=== PATIENT | female | born 1950 | race Caucasian/White ===

== ENCOUNTER 2019-07-18 03:52 | Emergency (ER) | payer MEDICARE, BC ==
[~2019-07-18] VITALS: Ht 154.9 cm; Wt 67.3 kg
[~2019-07-18 03:52] MED LIST: LEVO500 PO; METR500 PO; TAMO10 PO
[2019-07-18 04:35] LABS: BASOPHILS % (AUTO) 0.5 % (0.0-2.0); EOSINOPHILS % (AUTO) 0.8 % (1.0-6.0); HEMATOCRIT 42.7 % (36-46); HEMOGLOBIN 14.5 g/dL (12.0-16.0); LYMPHOCYTES # (AUTO) 2.4 K/uL (1.0-4.8); LYMPHOCYTES % (AUTO) 18.2 % (22.0-44.0); MEAN CORPUSCULAR HEMOGLOBIN 30.2 pg (26.0-34.0); MEAN CORPUSCULAR HGB CONC 33.9 G/dL (31.0-37.0); MEAN CORPUSCULAR VOLUME 89 fL (80-100); MONOCYTES # (AUTO) 1.1 K/uL (0.1-1.0); MONOCYTES % (AUTO) 8.3 % (2.0-9.0); NEUTROPHILS # (AUTO) 9.6 K/uL (1.8-7.7); NEUTROPHILS % (AUTO) 72.2 % (40.0-70.0); PLATELET COUNT (AUTO) 307 K/uL (150-450); RED BLOOD CELL COUNT(AUTO) 4.79 MIL/uL (4.00-5.20); RED CELL DISTRIBUTION WIDTH 13.2 % (11.5-14.5)
[2019-07-18 04:38] LABS: APPEARANCE,URINE CLEAR (CLEAR); BILIRUBIN,URINE NEGATIVE (NEGATIVE); GLUCOSE, URINE (UA) NEGATIVE (NEGATIVE); KETONES,URINE NEGATIVE (NEGATIVE); LEUKOCYTE ESTERASE ,URINE NEGATIVE (NEGATIVE); NITRATE,URINE NEGATIVE (NEGATIVE); OCCULT BLOOD,URINE SMALL (NEGATIVE); PH,URINE 6.5 (5.0-8.0); PROTEIN,URINE NEGATIVE (NEGATIVE); UROBILINOGEN,URINE 0.2 mg/dL (<=1.0)
[2019-07-18 04:38] LABS: CALCIUM, TOTAL 8.6 mg/dL (8.8-10.5); CREATININE 1.07 mg/dL (0.60-1.30); POTASSIUM 4.1 mmol/L (3.5-5.1)
[2019-07-18 04:45] LABS: ALBUMIN 3.2 g/dL (3.4-5.0); BILIRUBIN,TOTAL 0.2 mg/dL (0.1-1.0); TOTAL PROTEIN, SERUM 6.7 g/dL (6.4-8.2)
[2019-07-18 04:45] LABS: WBC,URINE 0-2 /HPF (0-5)
[2019-07-18 04:46] LABS: BACTERIA,URINE None Seen /HPF (None Seen); SQUAMOUS EPITHELIAL CELL,UR Rare /LPF (None Seen)
[2019-07-18] MEDS ORDERED: MORPHINE SULFATE 4 MG/ML SYRINGE IVP ONE (08:00)
[2019-07-18] MEDS ORDERED: SODIUM CHLORIDE 0.9% 100 ML ONE (08:04)
[2019-07-18] MEDS ORDERED: IOVERSOL 320 MG/ML 100 ML VIAL ONE (08:04)
[2019-07-18 11:21] VITALS: BP 106/56
== END 2019-07-18 11:29 | disposition home or self-care (01) ==
LOC: EMS 03:54
DX: K57.32 Diverticulitis of large intestine without perforation or abscess without bleeding (principal); F17.210 Nicotine dependence, cigarettes, uncomplicated; E78.00 Pure hypercholesterolemia, unspecified; Z90.710 Acquired absence of both cervix and uterus; Z79.899 Other long term (current) drug therapy
CPT/HCPCS: 36415; 74177; 80053; 81001; 83690; 85025; 96374; 99284; J2270; J7050; Q9967

== ENCOUNTER 2020-09-28 15:42 | Emergency (ER) | payer MEDICARE, BC ==
[~2020-09-28] VITALS: Ht 147.3 cm; Wt 68.2 kg
[~2020-09-28 15:42] MED LIST changes: +LEVO-72 PO; -LEVO500 PO
[2020-09-28 18:53] VITALS: BP 126/73
== END 2020-09-28 19:05 | disposition home or self-care (01) ==
LOC: EMS 15:42
DX: S09.90XA Unspecified injury of head, initial encounter (principal); E78.00 Pure hypercholesterolemia, unspecified; F17.210 Nicotine dependence, cigarettes, uncomplicated; Z90.710 Acquired absence of both cervix and uterus; W01.0XXA Fall on same level from slipping, tripping and stumbling without subsequent striking against object, initial encounter; Y93.89 Activity, other specified; Y92.89 Other specified places as the place of occurrence of the external cause; Y99.8 Other external cause status
CPT/HCPCS: 70450

== ENCOUNTER 2021-06-21 15:44 | Emergency (ER) | payer MEDICARE, BC ==
[~2021-06-21] VITALS: Ht 152.4 cm; Wt 68.2 kg
[2021-06-21 17:00] VITALS: BP 92/57
[2021-06-21] MEDS ORDERED: ACETAMINOPHEN 500 MG TABLET PO ONE (17:15)
[2021-06-21] MEDS ORDERED: SULFAMETHOX/TRIMETH DS 800-160 MG/TABLET PO ONE (17:15)
[2021-06-21] MEDS ORDERED: POVIDONE-IODINE 10% 15 ML SOLUTION UD TP ONE (17:15)
[2021-06-21] MEDS ORDERED: CEPHALEXIN MONOHYDRATE 500 MG CAPSULE PO ONE (17:15)
== END 2021-06-21 18:06 | disposition home or self-care (01) ==
LOC: EMS 15:53
DX: L02.412 Cutaneous abscess of left axilla (principal); F17.210 Nicotine dependence, cigarettes, uncomplicated; E78.00 Pure hypercholesterolemia, unspecified; Z85.3 Personal history of malignant neoplasm of breast
CPT/HCPCS: 99284; 99406; Z7502; Z7610

== ENCOUNTER → 2022-01-05 | Outpatient (CLI) | payer MEDICARE, BC | END | disposition home or self-care (01) | LOC: RADMN 12:15 | PROVIDERS: ATTEND Internal Medicine | DX: R55 Syncope and collapse (principal); I67.82 Cerebral ischemia; R90.82 White matter disease, unspecified; G31.9 Degenerative disease of nervous system, unspecified; M19.011 Primary osteoarthritis, right shoulder; M25.411 Effusion, right shoulder; M75.51 Bursitis of right shoulder; M24.011 Loose body in right shoulder; M75.101 Unspecified rotator cuff tear or rupture of right shoulder, not specified as traumatic; M75.21 Bicipital tendinitis, right shoulder; M19.012 Primary osteoarthritis, left shoulder; M75.52 Bursitis of left shoulder; M75.102 Unspecified rotator cuff tear or rupture of left shoulder, not specified as traumatic; M75.22 Bicipital tendinitis, left shoulder; M24.012 Loose body in left shoulder | CPT/HCPCS: 70450; 73221 ==

== ENCOUNTER 2022-05-18 11:45 | Emergency (ER) | payer MEDICARE, BC ==
[~2022-05-18] VITALS: Ht 154.9 cm; Wt 72.7 kg
[2022-05-18 13:05] LABS: BASOPHILS % (AUTO) 0.5 % (0.0-2.0); HEMATOCRIT 45.6 % (36-46); HEMOGLOBIN 15.4 g/dL (12.0-16.0); LYMPHOCYTES # (AUTO) 1.7 K/uL (1.0-4.8); LYMPHOCYTES % (AUTO) 17.1 % (22.0-44.0); MEAN CORPUSCULAR HEMOGLOBIN 29.9 pg (26.0-34.0); MEAN CORPUSCULAR HGB CONC 33.8 G/dL (31.0-37.0); MEAN CORPUSCULAR VOLUME 89 fL (80-100); MONOCYTES # (AUTO) 0.8 K/uL (0.1-1.0); NEUTROPHILS # (AUTO) 7.2 K/uL (1.8-7.7); NEUTROPHILS % (AUTO) 73.4 % (40.0-70.0); PLATELET COUNT (AUTO) 339 K/uL (150-450); RED BLOOD CELL COUNT(AUTO) 5.14 MIL/uL (4.00-5.20)
[2022-05-18 13:09] LABS: APPEARANCE,URINE CLEAR (CLEAR); BILIRUBIN,URINE NEGATIVE (NEGATIVE); GLUCOSE, URINE (UA) NEGATIVE (NEGATIVE); KETONES,URINE NEGATIVE (NEGATIVE); LEUKOCYTE ESTERASE ,URINE NEGATIVE (NEGATIVE); NITRATE,URINE NEGATIVE (NEGATIVE); OCCULT BLOOD,URINE TRACE (NEGATIVE); PH,URINE 5.5 (5.0-8.0); PROTEIN,URINE NEGATIVE (NEGATIVE); SPECIFIC GRAVITIY, URINE 1.022 (1.003-1.030); UROBILINOGEN,URINE <=1.0 mg/dL (<=1.0)
[2022-05-18 13:16] LABS: CALCIUM, TOTAL 9.3 mg/dL (8.8-10.5); CREATININE 1.01 mg/dL (0.60-1.30); POTASSIUM 4.4 mmol/L (3.5-5.1)
[2022-05-18 13:22] LABS: ALBUMIN 3.4 g/dL (3.4-5.0); BILIRUBIN,TOTAL 0.2 mg/dL (0.1-1.0); TOTAL PROTEIN, SERUM 7.2 g/dL (6.4-8.2)
[2022-05-18 13:32] LABS: RBC,URINE 0-2 /HPF (0-2)
[2022-05-18] MEDS ORDERED: SODIUM CHLORIDE 0.9% 100 ML ONE (13:32)
[2022-05-18] MEDS ORDERED: IOHEXOL 350 MG/ML 100 ML VIAL ONE (13:32)
[2022-05-18 13:33] LABS: BACTERIA,URINE None Seen /HPF (None Seen); SQUAMOUS EPITHELIAL CELL,UR Many /LPF (None Seen)
[2022-05-18 13:58] LABS: LACTIC ACID 1.2 mmol/L (0.4-2.0)
[2022-05-18 15:54] VITALS: BP 121/78
[2022-05-24] MEDS ORDERED: HYDR-4723 PO (12:13)
[2022-05-24] MEDS ORDERED: MEDR4 PO ×3 (12:30→12:33)
== END 2022-05-18 15:57 | disposition home or self-care (01) ==
LOC: EMS 11:45
DX: R10.30 Lower abdominal pain, unspecified (principal); E78.00 Pure hypercholesterolemia, unspecified; F17.210 Nicotine dependence, cigarettes, uncomplicated
CPT/HCPCS: 99285; 74177; 80053; 81001; 83605; 84484; 85025; 85610; 85730; 86850; 86900; 86901; 36415; 93005; Q9967; J7050

== ENCOUNTER 2022-11-14 12:36 | Emergency (ER) | payer MEDICARE, BC ==
[~2022-11-14] VITALS: Ht 154.9 cm; Wt 72.7 kg
[~2022-11-14 12:36] MED LIST changes: +HYDR-4723 PO; -LEVO-72 PO; +MEDR4 PO; -METR500 PO; -TAMO10 PO
[2022-11-14 13:46] LABS: COVID AG,FIA SOURCE NASAL SWAB
[2022-11-14 14:05] LABS: INFLUENZA TYPE A NEGATIVE FOR TYPE A (NEGATIVE); INFLUENZA TYPE B NEGATIVE FOR TYPE B (NEGATIVE)
[2022-11-14 16:07] VITALS: BP 128/96
[2022-11-14 18:19] LABS: BASOPHILS % (AUTO) 0.5 % (0.0-2.0); HEMATOCRIT 44.6 % (36-46); HEMOGLOBIN 14.8 g/dL (12.0-16.0); LYMPHOCYTES # (AUTO) 1.4 K/uL (1.0-4.8); LYMPHOCYTES % (AUTO) 11.5 % (22.0-44.0); MEAN CORPUSCULAR HEMOGLOBIN 29.8 pg (26.0-34.0); MEAN CORPUSCULAR HGB CONC 33.2 G/dL (31.0-37.0); MEAN CORPUSCULAR VOLUME 90 fL (80-100); MONOCYTES # (AUTO) 1.2 K/uL (0.1-1.0); MONOCYTES % (AUTO) 9.9 % (2.0-9.0); NEUTROPHILS # (AUTO) 9.5 K/uL (1.8-7.7); NEUTROPHILS % (AUTO) 77.1 % (40.0-70.0); PLATELET COUNT (AUTO) 313 K/uL (150-450); RED BLOOD CELL COUNT(AUTO) 4.98 MIL/uL (4.00-5.20); RED CELL DISTRIBUTION WIDTH 14.3 % (11.5-14.5)
[2022-11-14 18:31] LABS: CREATININE 1.09 mg/dL (0.60-1.30); POTASSIUM 3.9 mmol/L (3.5-5.1)
[2022-11-14 18:37] LABS: ALBUMIN 3.4 g/dL (3.4-5.0); BILIRUBIN,TOTAL 0.3 mg/dL (0.1-1.0); TOTAL PROTEIN, SERUM 7.4 g/dL (6.4-8.2)
== END 2022-11-14 19:30 | disposition left against medical advice (07) ==
LOC: EMS 12:38
DX: J02.9 Acute pharyngitis, unspecified (principal); E78.00 Pure hypercholesterolemia, unspecified; F17.210 Nicotine dependence, cigarettes, uncomplicated; Z85.3 Personal history of malignant neoplasm of breast; Z90.710 Acquired absence of both cervix and uterus; Z20.822 Contact with and (suspected) exposure to COVID-19
CPT/HCPCS: 71045; 80053; 83880; 84484; 85025; 87804; 99284; 36415-L1; 36415-TC

== ENCOUNTER 2023-05-20 05:43 | Emergency (ER) | payer MEDICARE, BC ==
[~2023-05-20] VITALS: Ht 152.4 cm; Wt 68.2 kg
[2023-05-20 05:49] VITALS: BP 139/82; PULSE 68; RESP 18; TEMP 97.7
[2023-05-20] MEDS ORDERED: KETOROLAC TROMETHAMINE 60 MG/2 ML VIAL IM ONE (06:45)
[2023-05-20] MEDS ORDERED: ACETAMINOPHEN/CODEINE 300-30 MG TABLET PO ONE (06:45)
[2023-05-20 07:04] LABS: APPEARANCE,URINE HAZY (CLEAR); BILIRUBIN,URINE NEGATIVE (NEGATIVE); GLUCOSE, URINE (UA) NEGATIVE (NEGATIVE); KETONES,URINE NEGATIVE (NEGATIVE); LEUKOCYTE ESTERASE ,URINE LARGE (NEGATIVE); NITRATE,URINE NEGATIVE (NEGATIVE); OCCULT BLOOD,URINE MODERATE (NEGATIVE); PROTEIN,URINE 30-70 mg/dL (NEGATIVE); SPECIFIC GRAVITIY, URINE 1.014 (1.003-1.030); UROBILINOGEN,URINE <=1.0 mg/dL (<=1.0)
[2023-05-20 07:08] LABS: BASOPHILS % (AUTO) 0.7 % (0.0-2.0); EOSINOPHILS % (AUTO) 1.3 % (1.0-6.0); HEMATOCRIT 41.8 % (36-46); HEMOGLOBIN 14.1 g/dL (12.0-16.0); LYMPHOCYTES # (AUTO) 1.7 K/uL (1.0-4.8); LYMPHOCYTES % (AUTO) 15.2 % (22.0-44.0); MEAN CORPUSCULAR HGB CONC 33.7 G/dL (31.0-37.0); MEAN CORPUSCULAR VOLUME 89 fL (80-100); MONOCYTES # (AUTO) 1.2 K/uL (0.1-1.0); MONOCYTES % (AUTO) 10.2 % (2.0-9.0); NEUTROPHILS # (AUTO) 8.3 K/uL (1.8-7.7); NEUTROPHILS % (AUTO) 72.6 % (40.0-70.0); PLATELET COUNT (AUTO) 332 K/uL (150-450); RED BLOOD CELL COUNT(AUTO) 4.69 MIL/uL (4.00-5.20); RED CELL DISTRIBUTION WIDTH 14.8 % (11.5-14.5)
[2023-05-20 07:12] LABS: ANION GAP 6 mmol/L (8-16); CALCIUM, TOTAL 9.1 mg/dL (8.8-10.5); CARBON DIOXIDE 30 mmol/L (22-29); CHLORIDE 106 mmol/L (98-107); GLOMERULAR FILTR. RATE CALC > 60 mL/min (>60); GLUCOSE,RANDOM 90 mg/dL (70-110); POTASSIUM 3.9 mmol/L (3.5-5.1); SODIUM SERUM 141 mmol/L (136-145)
[2023-05-20 07:13] LABS: BACTERIA,URINE Few /HPF (None Seen); SQUAMOUS EPITHELIAL CELL,UR None Seen /LPF (None Seen)
[2023-05-20 07:18] LABS: ALANINE AMINOTRANSFERASE 16 U/L (12-78); ALKALINE PHOSPHATASE 185 U/L (46-116); ASPARTATE AMINOTRANSFERASE 13 U/L (15-37); BILIRUBIN,TOTAL 0.2 mg/dL (0.1-1.0); LIPASE 74 U/L (16-77); TOTAL PROTEIN, SERUM 6.3 g/dL (6.4-8.2)
[2023-05-20] MEDS ORDERED: ACET-2080 PO (07:38)
[2023-05-20] MEDS ORDERED: CEPH-558 PO (07:38)
[2023-05-20] MEDS ORDERED: ONDA-104 PO (07:38)
[2023-05-20] MEDS ORDERED: PHEN-674 PO (07:38)
== END 2023-05-20 08:04 | disposition home or self-care (01) ==
LOC: EMS 05:43
DX: N39.0 Urinary tract infection, site not specified (principal); E78.00 Pure hypercholesterolemia, unspecified; F17.210 Nicotine dependence, cigarettes, uncomplicated; Z87.440 Personal history of urinary (tract) infections; Z90.710 Acquired absence of both cervix and uterus
CPT/HCPCS: 99283; 80053; 81001; 83690; 84484; 85025; 36415; 87086; 87186; 96372; J1885

== ENCOUNTER 2025-04-12 08:02 | Inpatient (IN) | payer MEDICARE, BC ==
[~2025-04-12] VITALS: Ht 152.4 cm; Wt 68.1 kg
[~2025-04-12 08:02] MED LIST changes: +ACET-2080 PO; +CEPH-558 PO; -HYDR-4723 PO; -MEDR4 PO; +ONDA-104 PO; +PHEN-674 PO
[2025-04-12 08:35] LABS: BASOPHILS % (AUTO) 0.5 % (0.0-2.0); EOSINOPHILS % (AUTO) 0.5 % (1.0-6.0); HEMATOCRIT 45.2 % (36-46); HEMOGLOBIN 15.1 g/dL (12.0-16.0); LYMPHOCYTES # (AUTO) 2.7 K/uL (1.0-4.8); LYMPHOCYTES % (AUTO) 20.6 % (22.0-44.0); MEAN CORPUSCULAR HEMOGLOBIN 30.1 pg (26.0-34.0); MEAN CORPUSCULAR HGB CONC 33.5 G/dL (31.0-37.0); MEAN CORPUSCULAR VOLUME 90 fL (80-100); MONOCYTES # (AUTO) 1.1 K/uL (0.1-1.0); MONOCYTES % (AUTO) 8.7 % (2.0-9.0); NEUTROPHILS # (AUTO) 9.1 K/uL (1.8-7.7); NEUTROPHILS % (AUTO) 69.7 % (40.0-70.0); PLATELET COUNT (AUTO) 357 K/uL (150-450); RED BLOOD CELL COUNT(AUTO) 5.04 MIL/uL (4.00-5.20); RED CELL DISTRIBUTION WIDTH 13.9 % (11.5-14.5); WHITE BLOOD COUNT (AUTO) 13.1 K/uL (4.5-11.0)
[2025-04-12 08:45] LABS: CALCIUM, TOTAL 9.1 mg/dL (8.8-10.5); CREATININE 1.16 mg/dL (0.60-1.30); POTASSIUM 4.1 mmol/L (3.5-5.1)
[2025-04-12 08:48] LABS: ALBUMIN 3.1 g/dL (3.4-5.0); BILIRUBIN,TOTAL 0.5 mg/dL (0.1-1.0); CHOL/HDL RATIO 5.8 (3.9-5.7); TOTAL PROTEIN, SERUM 6.5 g/dL (6.4-8.2)
[2025-04-12 08:50] LABS: TROPONIN I-HIGH SENSITIVITY 7 ng/L (<51)
[2025-04-12 09:03] LABS: LACTIC ACID 0.9 mmol/L (0.4-2.0)
[2025-04-12] MEDS: CefTRIAXone 1 GM/DEXTROSE 50 ML IV ONE (10:11)
[2025-04-12] MEDS: SODIUM CHLORIDE 0.9% 1,000 ML IV ONE (10:12)
[2025-04-12] MEDS ORDERED: IOHEXOL 350 MG/ML 100 ML VIAL ONE (10:34)
[2025-04-12] MEDS ORDERED: SODIUM CHLORIDE 0.9% 100 ML ONE (10:35)
[2025-04-12] MEDS ORDERED: ACETAMINOPHEN 325 MG TABLET PO PRN (10:45)
[2025-04-12] MEDS ORDERED: ONDANSETRON HCL 4 MG/2 ML VIAL IVP PRN (10:45)
[2025-04-12] MEDS: ASPIRIN 325 MG TABLET PO ONE (11:32)
[2025-04-12] MEDS: ATORVASTATIN CALCIUM 40 MG TABLET PO ONE (11:32)
[2025-04-12] MEDS: ASPIRIN 81 MG CHEWABLE TABLET PO ONE (11:33)
[2025-04-12] MEDS: ATORVASTATIN CALCIUM 10 MG TABLET PO ONE (11:33)
[2025-04-12] MEDS: CLOPIDOGREL BISULFATE 300 MG TABLET PO ONE (11:33)
[2025-04-12] MEDS: EZETIMIBE 10 MG TABLET PO SCH (12:34)
[2025-04-12 15:50] LABS: TROPONIN I-HIGH SENSITIVITY 6 ng/L (<51)
[2025-04-12] MEDS: HEPARIN SODIUM,PORCINE 5,000 UNITS/ML VIAL SQ SCH (16:57)
[2025-04-12 18:40] VITALS: BP 131/92; PULSE 68; RESP 20; TEMP 98.1; O2SAT 95
[2025-04-12] MEDS: RINGERS SOLUTION,LACTATED 1,000 ML IV SCH (19:22)
[2025-04-12 19:43] VITALS: BP 139/77; PULSE 63; RESP 19; TEMP 98.6; O2SAT 100
[2025-04-12] MEDS: OXYGEN THERAPY IH SCH (20:00)
[2025-04-12 20:38] LABS: TROPONIN I-HIGH SENSITIVITY 6 ng/L (<51)
[2025-04-12] MEDS ORDERED: SODIUM CHLORIDE 0.9% 250 ML IV ONE (21:23)
[2025-04-12] MEDS: PIPERACILLIN SODIUM/TAZOBACTAM 2.25 GM in DEXTROSE 5%-WATER 50 ML IV SCH (21:37)
[2025-04-12] MEDS: ATORVASTATIN CALCIUM 40 MG TABLET PO SCH (21:41)
[2025-04-12 23:48] VITALS: BP 121/61; PULSE 82; RESP 18; TEMP 97.9; O2SAT 98
[2025-04-13 03:58] VITALS: BP 136/75; PULSE 85; RESP 18; TEMP 98.2; O2SAT 96
[2025-04-13 06:49] LABS: BASOPHILS % (AUTO) 0.4 % (0.0-2.0); EOSINOPHILS % (AUTO) 1.3 % (1.0-6.0); HEMATOCRIT 41.5 % (36-46); HEMOGLOBIN 13.8 g/dL (12.0-16.0); LYMPHOCYTES # (AUTO) 2.5 K/uL (1.0-4.8); LYMPHOCYTES % (AUTO) 23.9 % (22.0-44.0); MEAN CORPUSCULAR HGB CONC 33.3 G/dL (31.0-37.0); MEAN CORPUSCULAR VOLUME 90 fL (80-100); MONOCYTES # (AUTO) 0.9 K/uL (0.1-1.0); MONOCYTES % (AUTO) 8.9 % (2.0-9.0); NEUTROPHILS # (AUTO) 6.9 K/uL (1.8-7.7); NEUTROPHILS % (AUTO) 65.5 % (40.0-70.0); PLATELET COUNT (AUTO) 316 K/uL (150-450); RED BLOOD CELL COUNT(AUTO) 4.61 MIL/uL (4.00-5.20); RED CELL DISTRIBUTION WIDTH 13.7 % (11.5-14.5); WHITE BLOOD COUNT (AUTO) 10.5 K/uL (4.5-11.0)
[2025-04-13 07:14] LABS: CALCIUM, TOTAL 8.5 mg/dL (8.8-10.5); CREATININE 1.02 mg/dL (0.60-1.30); POTASSIUM 3.7 mmol/L (3.5-5.1)
[2025-04-13 08:17] VITALS: BP 128/75; PULSE 72; RESP 18; TEMP 98.4; O2SAT 96
[2025-04-13] MEDS: ASPIRIN 81 MG CHEWABLE TABLET PO SCH (08:35)
[2025-04-13] MEDS: CLOPIDOGREL BISULFATE 75 MG TABLET PO SCH (08:35)
[2025-04-13] MEDS ORDERED: 0.9% SODIUM CHLORIDE 10 ML SYRINGE IVP ONE (11:07)
[2025-04-13] MEDS ORDERED: IOHEXOL 300 MG/ML 100 ML VIAL ONE (11:07)
[2025-04-13] MEDS ORDERED: SODIUM CHLORIDE 0.9% 100 ML ONE (11:08)
[2025-04-13 12:12] VITALS: BP 127/62; PULSE 65; RESP 18; TEMP 97.3; O2SAT 96
[2025-04-13 12:33] LABS: APPEARANCE,URINE CLEAR (CLEAR); BILIRUBIN,URINE NEGATIVE (NEGATIVE); COLOR,URINE COLORLESS (YELLOW); GLUCOSE, URINE (UA) NEGATIVE (NEGATIVE); KETONES,URINE NEGATIVE (NEGATIVE); LEUKOCYTE ESTERASE ,URINE NEGATIVE (NEGATIVE); NITRATE,URINE NEGATIVE (NEGATIVE); OCCULT BLOOD,URINE NEGATIVE (NEGATIVE); PH,URINE 6.5 (5.0-8.0); PH,URINE DRUG SCREEN 6.5 (5.0-8.0); PROTEIN,URINE NEGATIVE (NEGATIVE); SPECIFIC GRAVITIY, URINE 1.011 (1.003-1.030); UROBILINOGEN,URINE <=1.0 mg/dL (<=1.0)
[2025-04-13 12:39] LABS: ALCOHOL, URINE DRUG SCREEN NEGATIVE (NEGATIVE); AMPHET/METH SCREEN,URINE POSITIVE (NEGATIVE); BARBITURATE SCREEN, URINE NEGATIVE (NEGATIVE); BENZODIAZEPINES SCREEN,URINE NEGATIVE (NEGATIVE); CANNABINOID SCREEN,URINE NEGATIVE (NEGATIVE); COCAINE SCREEN,URINE NEGATIVE (NEGATIVE); METHADONE SCREEN, URINE NEGATIVE (NEGATIVE); OPIATE SCREEN,URINE NEGATIVE (NEGATIVE); PHENCYCLIDINE SCREEN,URINE NEGATIVE (NEGATIVE)
[2025-04-13 12:40] LABS: RBC,URINE None Seen /HPF (0-2); WBC,URINE None Seen /HPF (0-5)
[2025-04-13 12:41] LABS: BACTERIA,URINE None Seen /HPF (None Seen)
[2025-04-13 16:08] VITALS: BP 140/67; PULSE 67; RESP 18; TEMP 98.1; O2SAT 95
[2025-04-13 19:47] VITALS: BP 136/82; PULSE 82; RESP 20; TEMP 98.2; O2SAT 95
[2025-04-14] VITALS: BP 126/75; PULSE 73; RESP 20; TEMP 97.7; O2SAT 94
[2025-04-14 06:27] VITALS: BP 132/64; PULSE 63; RESP 20; TEMP 98.1; O2SAT 95
[2025-04-14 07:47] VITALS: BP 119/76; PULSE 63; RESP 18; TEMP 98.2; O2SAT 96
[2025-04-14 09:45] LABS: BASOPHILS % (AUTO) 0.7 % (0.0-2.0); EOSINOPHILS % (AUTO) 1.3 % (1.0-6.0); HEMATOCRIT 41.9 % (36-46); HEMOGLOBIN 13.9 g/dL (12.0-16.0); LYMPHOCYTES # (AUTO) 1.8 K/uL (1.0-4.8); LYMPHOCYTES % (AUTO) 19.5 % (22.0-44.0); MEAN CORPUSCULAR HEMOGLOBIN 29.9 pg (26.0-34.0); MEAN CORPUSCULAR VOLUME 91 fL (80-100); MONOCYTES # (AUTO) 0.6 K/uL (0.1-1.0); MONOCYTES % (AUTO) 6.6 % (2.0-9.0); NEUTROPHILS # (AUTO) 6.7 K/uL (1.8-7.7); NEUTROPHILS % (AUTO) 71.9 % (40.0-70.0); PLATELET COUNT (AUTO) 319 K/uL (150-450); RED BLOOD CELL COUNT(AUTO) 4.63 MIL/uL (4.00-5.20); RED CELL DISTRIBUTION WIDTH 13.9 % (11.5-14.5); WHITE BLOOD COUNT (AUTO) 9.4 K/uL (4.5-11.0)
[2025-04-14 09:55] LABS: CALCIUM, TOTAL 8.7 mg/dL (8.8-10.5); CREATININE 1.15 mg/dL (0.60-1.30); POTASSIUM 3.6 mmol/L (3.5-5.1)
[2025-04-14 11:47] VITALS: BP 124/72; PULSE 66; RESP 18; TEMP 97.9; O2SAT 96
[2025-04-14] MEDS ORDERED: CLOP75TA83 PO (15:14)
[2025-04-14] MEDS ORDERED: EZET10TA57 PO (15:14)
[2025-04-14] MEDS ORDERED: ATOR40TA71 PO (15:14)
[2025-04-14] MEDS ORDERED: ASPI-1450 PO (15:14)
[2025-04-14 15:23] VITALS: BP 146/68; PULSE 58; RESP 18; TEMP 98; O2SAT 97
[2025-04-14] MEDS ORDERED: LEVO-72 PO (17:31)
[2025-04-14] MEDS ORDERED: METR500 PO (17:31)
[2025-04-14] MEDS: levoFLOXacin 500 MG TABLET PO ONE (18:38)
[2025-04-14] MEDS: MetroNIDAZOLE 500 MG TABLET PO ONE (18:38)
[2025-04-14] MEDS ORDERED: MetroNIDAZOLE 500 MG TABLET PO SCH (21:00)
[2025-04-15] MEDS ORDERED: levoFLOXacin 500 MG TABLET PO SCH (09:00)
== END 2025-04-14 18:40 | disposition home or self-care (01) | DRG 871 ==
LOC: EMS 08:03 → EDH 11:15 → 5S 18:50
PROVIDERS: ADMIT Internal Medicine; ATTEND Internal Medicine
DX: A41.9 Sepsis, unspecified organism (principal); G93.41 Metabolic encephalopathy; J96.01 Acute respiratory failure with hypoxia; J69.0 Pneumonitis due to inhalation of food and vomit; G45.9 Transient cerebral ischemic attack, unspecified; N39.0 Urinary tract infection, site not specified; F17.210 Nicotine dependence, cigarettes, uncomplicated; I10 Essential (primary) hypertension; R00.1 Bradycardia, unspecified; E78.00 Pure hypercholesterolemia, unspecified; Z85.3 Personal history of malignant neoplasm of breast; Z86.73 Personal history of transient ischemic attack (TIA), and cerebral infarction without residual deficits; Z90.12 Acquired absence of left breast and nipple; Z90.710 Acquired absence of both cervix and uterus; Z87.440 Personal history of urinary (tract) infections
CPT/HCPCS: 70496; 70498; 70551; 71045; 71260; 72193; 74160; 80048; 80053; 80061; 80307; 81001; 82948; 83036; 83605; 83735; 84484; 85025; 85610; 85730; 86850; 86900; 86901; 87040; 92610; 93005; 93306; 97161; 97166; 97530; 99291; J0696; J1644; J2543; J7030; J7050; J7060; J7120; Q9967; 36415-L1; 36415-TC; 70450; 70450-TC

== ENCOUNTER 2025-09-09 01:34 | Emergency (ER) | payer MEDICARE, BC ==
[~2025-09-09] VITALS: Ht 154.9 cm; Wt 47.7 kg
[~2025-09-09 01:34] MED LIST changes: -ACET-2080 PO; +ASPI-1450 PO; +ATOR40TA71 PO; -CEPH-558 PO; +CLOP75TA83 PO; +EZET10TA57 PO; +LEVO-72 PO; +METR500 PO; -ONDA-104 PO; -PHEN-674 PO
[2025-09-09 01:37] VITALS: TEMP 99.1
[2025-09-09] MEDS: ACETAMINOPHEN 500 MG TABLET PO ONE (02:15)
[2025-09-09 02:25] LABS: PLATELET COUNT (AUTO) 328 K/uL (150-450); RED BLOOD CELL COUNT(AUTO) 5.10 MIL/uL (4.00-5.20); RED CELL DISTRIBUTION WIDTH 14.4 % (11.5-14.5); WHITE BLOOD COUNT (AUTO) 16.8 K/uL (4.5-11.0)
[2025-09-09 02:49] LABS: CALCIUM, TOTAL 8.7 mg/dL (8.8-10.5); CREATININE 1.4 mg/dL (0.60-1.30); GLOMERULAR FILTR. RATE CALC 37.0 mL/min (>60); GLUCOSE,RANDOM 131.0 mg/dL (70-110); SODIUM SERUM 136.0 mmol/L (136-145); UREA NITROGEN, BLOOD 17.0 mg/dL (7-18)
[2025-09-09 03:36] LABS: APPEARANCE,URINE HAZY (CLEAR); GLUCOSE, URINE (UA) NEGATIVE (NEGATIVE); LEUKOCYTE ESTERASE ,URINE SMALL (NEGATIVE); NITRATE,URINE NEGATIVE (NEGATIVE); OCCULT BLOOD,URINE SMALL (NEGATIVE); SPECIFIC GRAVITIY, URINE 1.031 (1.003-1.030)
[2025-09-09 03:37] LABS: SQUAMOUS EPITHELIAL CELL,UR Few /LPF (None Seen)
[2025-09-09] MEDS ORDERED: CEFU250T87 PO (04:17)
[2025-09-09 04:30] VITALS: BP 127/81; PULSE 89; RESP 14; O2SAT 97
== END 2025-09-09 04:59 | disposition home or self-care (01) ==
LOC: EMS 01:34
DX: R51.9 Headache, unspecified (principal); N39.0 Urinary tract infection, site not specified; E78.00 Pure hypercholesterolemia, unspecified; F17.210 Nicotine dependence, cigarettes, uncomplicated; Z90.12 Acquired absence of left breast and nipple; Z90.710 Acquired absence of both cervix and uterus; Z85.3 Personal history of malignant neoplasm of breast; Z79.02 Long term (current) use of antithrombotics/antiplatelets; Z79.82 Long term (current) use of aspirin; Z79.899 Other long term (current) drug therapy
CPT/HCPCS: 80048; 81001; 85025; 99282

== ENCOUNTER 2025-09-09 06:32 | Emergency (ER) | payer MEDICARE, BC ==
[~2025-09-09] VITALS: Ht 154.9 cm; Wt 68.2 kg
[~2025-09-09 06:32] MED LIST changes: +CEFU250T87 PO
[2025-09-09] MEDS: SODIUM CHLORIDE 0.9% 2,050 ML IV ONE (07:06)
[2025-09-09 07:35] LABS: CALCIUM, TOTAL 8.4 mg/dL (8.8-10.5); CREATININE 1.71 mg/dL (0.60-1.30); GLOMERULAR FILTR. RATE CALC 29 mL/min (>60); GLUCOSE,RANDOM 127 mg/dL (70-110); SODIUM SERUM 136 mmol/L (136-145); UREA NITROGEN, BLOOD 19 mg/dL (7-18)
[2025-09-09 07:44] LABS: TROPONIN I-HIGH SENSITIVITY 6 ng/L (<51)
[2025-09-09 07:45] LABS: ASPARTATE AMINOTRANSFERASE 20 U/L (15-37); TOTAL PROTEIN, SERUM 6.3 g/dL (6.4-8.2)
[2025-09-09] MEDS: CefTRIAXone 1 GM/DEXTROSE 50 ML IV ONE (07:47)
[2025-09-09] MEDS: MORPHINE SULFATE 4 MG/ML SYRINGE IVP ONE (08:01)
[2025-09-09] MEDS: ONDANSETRON HCL 4 MG/2 ML VIAL IVP ONE (08:02)
[2025-09-09 08:22] LABS: LACTIC ACID 2.3 mmol/L (0.4-2.0)
[2025-09-09] MEDS: BACITRACIN 0.9 GM PACKET OINTMENT TP ONE (08:23)
[2025-09-09 09:23] LABS: PLATELET COUNT (AUTO) 274 K/uL (150-450); RED BLOOD CELL COUNT(AUTO) 4.63 MIL/uL (4.00-5.20); RED CELL DISTRIBUTION WIDTH 14.3 % (11.5-14.5); WHITE BLOOD COUNT (AUTO) 19.8 K/uL (4.5-11.0)
[2025-09-09 09:47] LABS: BAND NEUTROPHILS % (MANUAL) 23 % (0-5); EOSINOPHILS % (MANUAL) 1 % (1-6); LYMPHOCYTES % (MANUAL) 9 % (22-44); METAMYELOCYTES % 1 % (0-0); MONOCYTES % (MANUAL) 8 % (2-9); SEGMENTED NEUTROPHILS % 58 % (40-70)
[2025-09-09 10:05] VITALS: BP 103/52; PULSE 68; RESP 20; TEMP 98.2; O2SAT 98
[2025-09-09] MEDS: PIPERACILLIN/TAZO 3.375 GM/D5W 50 ML IV ONE (10:10)
[2025-09-09] MEDS: 0.9% SODIUM CHLORIDE 10 ML SYRINGE IVP PRN (10:11)
[2025-09-09 10:38] LABS: APPEARANCE,URINE HAZY (CLEAR); GLUCOSE, URINE (UA) NEGATIVE (NEGATIVE); LEUKOCYTE ESTERASE ,URINE TRACE (NEGATIVE); NITRATE,URINE NEGATIVE (NEGATIVE); OCCULT BLOOD,URINE MODERATE (NEGATIVE); SPECIFIC GRAVITIY, URINE 1.025 (1.003-1.030)
[2025-09-09 10:50] LABS: SQUAMOUS EPITHELIAL CELL,UR Many /LPF (None Seen)
[2025-09-09 10:51] LABS: HYALINE CASTS, URINE 0-2 /LPF (None Seen)
== END 2025-09-09 11:32 | disposition short-term general hospital (02) ==
LOC: EMS 06:32
DX: S36.63XA Laceration of rectum, initial encounter (principal); R55 Syncope and collapse; A41.9 Sepsis, unspecified organism; N17.9 Acute kidney failure, unspecified; E78.00 Pure hypercholesterolemia, unspecified; F17.210 Nicotine dependence, cigarettes, uncomplicated; Z79.02 Long term (current) use of antithrombotics/antiplatelets; Z79.82 Long term (current) use of aspirin; Z85.3 Personal history of malignant neoplasm of breast; Z86.73 Personal history of transient ischemic attack (TIA), and cerebral infarction without residual deficits; Z90.12 Acquired absence of left breast and nipple; Z90.710 Acquired absence of both cervix and uterus; W18.2XXA Fall in (into) shower or empty bathtub, initial encounter; Y93.E1 Activity, personal bathing and showering; Y92.89 Other specified places as the place of occurrence of the external cause; Y99.8 Other external cause status
CPT/HCPCS: 99291; 70450; 96365; 96375; 71045; 96367; 96361; 80048; 80076; 81001; 83605; 83690; 83880; 84484; 85025; 85610; 87040; 87086; 72131; 74176; 93005; 51702; 84145; 36415; J0696; J2270; J2405; J2543